=== PATIENT | female | born 1990 | race Caucasian/White ===

== ENCOUNTER → 2023-04-14 | Outpatient (CLI) | payer MEDICAID, SELFPAY ==
[2023-04-17 08:07] LABS: Chlamydia By Nucleic Acid AMP Negative (Negative); Gonococcus By Nucleic Acid AMP Negative (Negative)
== END | disposition home or self-care (01) ==
LOC: LABSPEC 10:29
PROVIDERS: PCP Internal Medicine; Referring Provider Obstetrics & Gynecology; Visit Provider Obstetrics & Gynecology
DX: Z34.90 Encounter for supervision of normal pregnancy, unspecified, unspecified trimester (principal); Z3A.00 Weeks of gestation of pregnancy not specified
CPT/HCPCS: 87086; 87088; 87491; 87591

== ENCOUNTER → 2023-04-26 | Outpatient (CLI) | payer MEDICAID, SELFPAY ==
[2023-04-26 11:10] LABS: Absolute Lymphocyte Count 1.52 X10^3/uL (0.83-4.51); Absolute Neutrophil Count 4.9 X10^3/uL (2.0-7.7); Basophil# 0.01 X10^3/uL; Basophil% 0.1 % (0-1); Eosinophil# 0.07 X10^3/uL; Hematocrit 34.2 % (37-47); Hemoglobin 11.1 g/dL (12.0-15.0); Lymphocyte # 1.52 X10^3/ul (0.83-4.51); Lymphocyte % 22.2 % (19-41); Mean Corp Hgb Conc 32.5 g/dL (32-36); Mean Corpuscular Hgb 29.1 pg (27.0-32.0); Mean Corpuscular Volume 89.8 fL (81-99); Mean Platelet Vol. 10.3 fl (6.2-12.0); Monocyte% 4.4 % (0-10); NRBC Flagged by Analyzer 0 % (0-5); Neutrophil # 4.92 X10^3/uL (2.7-7.7); Neutrophil % 71.9 % (47-70); Platelet Count 309 K/mm3 (150-450); RBC Distribution Width CV 13.4 % (11.6-14.6); RBC Distribution Width SD 44.4 fl (35.1-43.9); Red Blood Count 3.81 M/mm3 (4.2-5.4); White Blood Count 6.9 K/mm3 (4.4-11.0)
[2023-04-26 12:03] LABS: NATERA MAILED SPECIMEN
[2023-04-26 12:25] LABS: HIV - WCH Non-Reactive (Nonreactive); Hepatitis B Surface Antigen Non-Reactive (Nonreactive); Hepatitis C Antibody Non-Reactive (Nonreactive); Rubella IgG Reactive (Nonreactive); Syphilis Antibodies Non-reactive
== END | disposition home or self-care (01) ==
PROVIDERS: PCP Internal Medicine; Referring Provider Obstetrics & Gynecology; Visit Provider Obstetrics & Gynecology
DX: Z34.91 Encounter for supervision of normal pregnancy, unspecified, first trimester (principal); Z84.89 Family history of other specified conditions; Z82.79 Family history of other congenital malformations, deformations and chromosomal abnormalities
CPT/HCPCS: 36415; 85025; 86703; 86762; 86780; 86803; 86850; 86900; 86901; 87340

== ENCOUNTER → 2023-04-29 | Outpatient (CLI) | payer MEDICAID, SELFPAY ==
[2023-04-29 11:16] LABS: Amphetamine Urine VISTA NEGATIVE (<1000 ng/mL); Barbiturate Urine VISTA NEGATIVE (< 200 ng/mL); Benzodiazepine Urine VISTA NEGATIVE (< 200 ng/mL); Cocaine Urine VISTA NEGATIVE (< 300 ng/mL); Ecstacy Urine VISTA NEGATIVE (< 500 ng/mL); Methadone Urine VISTA NEGATIVE (< 300 ng/mL); PCP Urine VISTA NEGATIVE (< 25 ng/mL); THC Urine VISTA NEGATIVE (< 50 ng/mL); Vista UDS pH Range 7
== END | disposition home or self-care (01) ==
LOC: LABSPEC 10:39
PROVIDERS: PCP Internal Medicine; Referring Provider Student in an Organized Health Care Education/Training Program; Visit Provider Student in an Organized Health Care Education/Training Program
DX: F90.9 Attention-deficit hyperactivity disorder, unspecified type (principal)
CPT/HCPCS: 80307

== ENCOUNTER → 2023-06-02 | Outpatient (CLI) | payer MEDICAID, SELFPAY | END | disposition home or self-care (01) | PROVIDERS: PCP Internal Medicine; Referring Provider Registered Nurse; Visit Provider Registered Nurse | DX: Z36.9 Encounter for antenatal screening, unspecified (principal) | CPT/HCPCS: 36415 ==

== ENCOUNTER → 2023-07-20 | Outpatient (CLI) | payer MEDICAID, SELFPAY | END | disposition home or self-care (01) | LOC: LABSPEC 15:57 | PROVIDERS: PCP Internal Medicine; Referring Provider Obstetrics & Gynecology; Visit Provider Obstetrics & Gynecology | DX: N89.8 Other specified noninflammatory disorders of vagina (principal) | CPT/HCPCS: 87070; 87205 ==

== ENCOUNTER → 2023-08-17 | Outpatient (CLI) | payer MEDICAID, SELFPAY ==
[2023-08-17 13:24] LABS: Absolute Lymphocyte Count 1.79 X10^3/uL (0.83-4.51); Absolute Neutrophil Count 8.9 X10^3/uL (2.0-7.7); Basophil# 0.03 X10^3/uL; Basophil% 0.3 % (0-1); Eosinophil# 0.09 X10^3/uL; Eosinophils% 0.8 % (0-5); Hematocrit 30.3 % (37-47); Hemoglobin 9.2 g/dL (12.0-15.0); Lymphocyte # 1.79 X10^3/ul (0.83-4.51); Lymphocyte % 15.6 % (19-41); Mean Corp Hgb Conc 30.4 g/dL (32-36); Mean Corpuscular Hgb 27.6 pg (27.0-32.0); Mean Platelet Vol. 10.6 fl (6.2-12.0); Monocyte# 0.57 X10^3/uL; NRBC Flagged by Analyzer 0 % (0-5); Neutrophil # 8.91 X10^3/uL (2.7-7.7); Neutrophil % 77.8 % (47-70); Platelet Count 246 K/mm3 (150-450); RBC Distribution Width CV 13.5 % (11.6-14.6); Red Blood Count 3.33 M/mm3 (4.2-5.4); White Blood Count 11.5 K/mm3 (4.4-11.0)
[2023-08-17 13:31] LABS: Glucose Challenge Gest 1H 50g 86 mg/dL (70-140)
[2023-08-17 14:06] LABS: HIV - WCH Non-Reactive (Nonreactive); Syphilis Antibodies Non-reactive
== END | disposition home or self-care (01) ==
LOC: PAVLAB 12:53
PROVIDERS: PCP Internal Medicine; Referring Provider Obstetrics & Gynecology; Visit Provider Obstetrics & Gynecology
DX: O09.90 Supervision of high risk pregnancy, unspecified, unspecified trimester (principal); Z13.1 Encounter for screening for diabetes mellitus; Z3A.00 Weeks of gestation of pregnancy not specified
CPT/HCPCS: 36415; 82950; 85025; 86703; 86780

== ENCOUNTER 2023-09-10 11:55 | Outpatient (CLI) | payer MEDICAID, SELFPAY ==
[2023-09-10 12:07] VITALS: BMI 21.9
--- NOTE | 2023-09-10 12:11 | OB.TRI.HP_ITS ---
HPI - General HPI Narrative WILLIAM SMITH, is a 33 y/o @ 29 weeks 4 days who presents to OB triage for contractions. She states that she is nervous because she was told 3 days ago that her lower uterine segment shrunk even more (by half). It was 24 mm at anatomy scan. Records from [facility] are still pending. She admits to having sex this am also. She ate a full breakfast this morning. Wants a note to be done with work. Maternal Data Information ERICA Calculator Estimated Delivery Date Method Current WG Current Estimate 11/22/23 LMP (Certain) 29w 4d Other Estimates 11/24/23 Ultrasound #1 29w 2d PFSH PFS Medical History Bacterial vaginosis Vaginal yeast infection Home Medications PNV 178-FA 180 mcg-om3 35 mg-dha 25 mg-epa 5 mg-fish oil chew tablet 1 tab PO DAILY 04/05/23 [History Last Taken Unknown] dextroamphetamine-amphetamine ER 20 mg 24hr capsule,extend release (Adderall XR) 20 mg PO DAILY 30 days #30 caps 07/28/23 [Rx Last Taken 09/09/23] Allergy/AdvReac Type Severity Reaction Status Date / Time No Known Allergies Allergy Verified 08/29/23 08:41 Family History Father Varicose veins of both lower extremities Mother Lumpy breasts Genetic testing done-no genetic variants noted Grandmother Breast cancer Maternal- preventative dbl mastectomy Surgical History H/O dilation and curettage History of appendectomy History of arthroscopic knee surgery History of elective Social History adopted: No household members: significant other, children and friend(s) number of children: 2 current occupational status: employed current occupation: [employer] pets and animals: Yes pets and animals: dog(s) history of recent travel: No sexually active: Yes Smoking Status: Former smoker quit date: 06/16/13 alcohol intake: current alcohol intake frequency: a few times a week Alcohol type: hard liquor details: not while substance use type: does not use well-balanced diet: rarely or never caffeine: Yes Type: carbonated beverages Number of servings: 1 eating out: 1-3 times/week during the past year weight has: remained stable what type of physical activity do you participate in: none walter/mandaen: None seatbelt use: always do you feel safe at home: Yes additional social history: Significant Other Andrea-Disabled History 4 Elective abortions 1 Hx Para 2 Spontaneous abortions Hx # Term Pregnancies Ectopic pregnancies Hx # Pregnancies Multiple births # of living children 2 Past Pregnancies Del. Date Name GA/Weeks Outcome Route Bth Weight Infant Gen Labor Lgth Anesthesia Del Locatn Provider FOB 05/15/12 Bhupendra live - full term 7# Male [facility] 03/19/13 terminated due to abnorm 03/31/15 Nova 39 live - full term 8# Female [facility] [place] Delivery Date: 05/15/12 Last Updated by: Cintia Christensen emergency c section, decels Delivery Date: 03/31/15 Last Updated by: Cintia Christensen uterus thin, saw baby through uterus. Pre-term labor Visit Details Expected Delivery Route/Plan RLTCS and BS Plans Covid status: [] Flu vaccine: [] Tdap vaccine: [] Rhogam: [] LARC form signed: [] Problem list reviewed and updated with the most current plan of care details and appropriate orders placed. Relevant counseling for the gestational age provided. Continue routine care and follow up unless otherwise noted in visit notes/problem list details OB Flowsheet Initial Weight: 93 lb Date -?-?-?-?-?-?-?-?-?-?-?-?- EGA Weight BP Urine Prot -?-?-?-?-?-?-?-?-?-?-?-?- Glucose FHR FuHt Pres Dilation -?-?-?-?-?-?-?-?-?-?-?-?- Effaced St Visit Note 04/14/23 -?-?-?-?-?-?-?-?-?-?-?-?- 8w 2d 93 lb (+0 oz) 90/70 -?-?-?-?-?-?-?-?-?-?-?-?- 160 -?-?-?-?-?-?-?-?-?-?-?-?- SM- CRL cons wit h LMP 05/13/23 -?-?-?-?-?-?-?-?-?-?-?-?- 12w 3d 94 lb (+16 oz) 113/77 Negative -?-?-?-?-?-?-?-?-?-?-?-?- Negative 145 -?-?-?-?-?-?-?-?-?-?-?-?- LC- no vb/crampi ng. accepts afp. mfm us ordered. normal nob labs.nipt low risk. 06/09/23 -?-?-?-?-?-?-?-?-?-?-?-?- 16w 2d 97 lb 4 oz (+4 lb 4 oz) 105/70 -?-?-?-?-?-?-?-?-?-?-?-?- 153 -?-?-?-?-?-?-?-?-?-?-?-?- KW-no vb/ctx. po ssible flutters. Formal US 06/23. No concerns 07/06/23 -?-?-?-?-?-?-?-?-?-?-?-?- 20w 1d 102 lb 2 oz (+9 lb 2 oz) 108/73 Negative -?-?-?-?-?-?-?-?-?-?-?-?- Negative 151 -?-?-?-?-?-?-?-?-?-?-?-?- JV- see problem list for details about delivery. no lof, vaginal bleeding, or dec fm. 07/20/23 -?-?-?-?-?-?-?-?-?-?-?-?- 22w 1d 107 lb 8 oz (+14 lb 8 oz) 118/79 Negative -?-?-?-?-?-?-?-?-?-?-?-?- Negative 146 -?-?-?-?-?-?-?-?-?-?-?-?- JV- no lof, vagi nal bleeding, or cramping. Has a large amount of vaginal discharge and burning . on exam she has a moderate yeast infection. treatment ordered. pt wondering if we can do her rpt section on a tuesday. She has a special connection with the . I told her likely no. 08/17/23 -?-?-?-?-?-?-?-?-?-?-?-?- 26w 1d 111 lb 2 oz (+18 lb 2 oz) 123/79 -?-?-?-?-?-?-?-?-?-?-?-?- 145 27 -?-?-?-?-?-?-?-?-?-?-?-?- JV- normal gluco la. pt is anemic. starting ferrous gluconate bid. 08/29/23 -?-?-?-?-?-?-?-?-?-?-?-?- 27w 6d 113 lb 4 oz (+20 lb 4 oz) 107/74 Negative -?-?-?-?-?-?-?-?-?-?-?-?- Negative 144 28 -?-?-?-?-?-?-?-?-?-?-?-?- JV- unable to to lerate PO iron. will order Iron infusion. tdap next visit. ROS Constitutional Constitutional: Reports systems reviewed and no addt'l complaints, except as documented Gastrointestinal Gastrointestinal: Denies bloating, constipation, cramping, diarrhea, nausea or vomiting Genitourinary Genitourinary: Reports other Details: Denies vaginal odor, vaginal bleeding, or vaginal discharge ; Denies difficulty urinating or flank pain Physical Exam HEENT normocephalic Resp normal respiratory effort and normal air movement no CVA tenderness Extremity normal to inspection General Extremity: edema bilateral (trace ) NST FHR Rate Baby A Baseline: 135 Variability:: Moderate Accelerations:: 10 x 10 Decelerations:: None NST Reactive:: Yes FHR Category:: Category I Assessment & Plan (1) Threatened labor: (2) Uterine abnormality in : COMMENT: 24mm thin GENNARO seen on US this . previous uterine window noted, plan 30 and 36 week US. s/p mfm consult- delivery at 37 weeks recommended. steroids at 35 weeks, RLTCS scheduled for 10/31 @ 7:15 with JV -rpt ultrasound showed GENNARO at 29 weeks to be 16mm. has plan to repeat this at 36 weeks but may be delivered before this. -on l&D for pain after sex on 09/09 and stable. PLAN: tylenol + procardia, hydrate, rest pelvic rest for remainder of (3) Former smoker: COMMENT: Quit 2014 (4) Family history of Bonilla syndrome: COMMENT: previous child. low nipt this . (5) Anemia: COMMENT: CBC & Fe studies in 4 weeks (6) Previous section: COMMENT: x 2. First related to decels 10/31- 7am- JV with BTL. title 19 08/17/23 (7) Anxiety and depression: (8) ADHD (attention deficit hyperactivity disorder): COMMENT: on adderall. (9) Supervision of high-risk : COMMENT: , ERICA 11/22/23, Katina Winters Significant other Andrea (10) : QUALIFIERS: Weeks of gestation: 27 weeks Qualified Code(s): Z3A.27 - 27 weeks gestation of COMMENT: NIPT low risk, carrier testing neg. 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
[2023-09-10 12:17] VITALS: PULSE 111; RESP 16; TEMP 37.1
[2023-09-10 12:18] VITALS: BP 120/74; PULSE 111
[2023-09-10] MEDS: NIFEdipine 10 MG Capsule PO (12:52)
[2023-09-10] MEDS: Acetaminophen 500 MG Tablet 1000 MG PO (12:52)
== END 2023-09-10 13:50 | disposition home or self-care (01) ==
LOC: WPOUT 11:56 → WP 11:57
PROVIDERS: PCP Internal Medicine; Referring Provider Registered Nurse; Visit Provider Registered Nurse
DX: O47.03 False labor before 37 completed weeks of gestation, third trimester (principal); O34.593 Maternal care for other abnormalities of gravid uterus, third trimester; O34.211 Maternal care for low transverse scar from previous cesarean delivery; O99.013 Anemia complicating pregnancy, third trimester; O99.343 Other mental disorders complicating pregnancy, third trimester; F90.9 Attention-deficit hyperactivity disorder, unspecified type; O09.93 Supervision of high risk pregnancy, unspecified, third trimester; Z3A.29 29 weeks gestation of pregnancy; Z87.59 Personal history of other complications of pregnancy, childbirth and the puerperium; Z87.891 Personal history of nicotine dependence; Z82.79 Family history of other congenital malformations, deformations and chromosomal abnormalities
CPT/HCPCS: 59025; 59050; 76815; 99221; G0378

== ENCOUNTER 2023-09-13 09:15 | Outpatient (CLI) | payer MEDICAID, SELFPAY ==
[2023-09-13 09:39] VITALS: BP 116/74; PULSE 105; RESP 16; TEMP 36.3; O2SAT 100; BMI 21.9
[2023-09-13] MEDS: Iron Sucrose Complex 300 MG in 0.9% Normal Saline (250mL Bag) 250 ML 177 MG IV (10:13)
[2023-09-13] MEDS: 0.9% NaCl Peripheral Flush Adult/Peds IV (10:13)
[2023-09-13] MEDS: 0.9% NaCl IVPB Med Flush (250 mL) 15 ML IV (10:13)
[2023-09-13 12:30] VITALS: BP 102/72; PULSE 77
== END 2023-09-13 09:16 | disposition home or self-care (01) ==
LOC: MEDOUTP 09:16
PROVIDERS: PCP Internal Medicine; Referring Provider Obstetrics & Gynecology; Visit Provider Obstetrics & Gynecology
DX: D64.9 Anemia, unspecified (principal)
CPT/HCPCS: 96365; 96366; J1756; J7050; A4216

== ENCOUNTER 2023-09-21 09:36 | Outpatient (CLI) | payer MEDICAID, SELFPAY ==
[2023-09-21 09:40] VITALS: BP 104/67; PULSE 111; RESP 16; TEMP 36.4; O2SAT 99
[2023-09-21] MEDS: 0.9% NaCl IVPB Med Flush (250 mL) 15 ML IV (10:12)
[2023-09-21] MEDS: 0.9% NaCl Peripheral Flush Adult/Peds IV (10:12)
[2023-09-21] MEDS: Iron Sucrose Complex 300 MG in 0.9% Normal Saline (250mL Bag) 250 ML 177 MG IV (10:15)
[2023-09-21 12:10] VITALS: BP 99/64; PULSE 98; RESP 16; TEMP 36.8; O2SAT 99
== END 2023-09-21 09:37 | disposition home or self-care (01) ==
LOC: MEDOUTP 09:36
PROVIDERS: PCP Internal Medicine; Referring Provider Obstetrics & Gynecology; Visit Provider Obstetrics & Gynecology
DX: D64.9 Anemia, unspecified (principal)
CPT/HCPCS: 96365; 96366; J1756; J7050; A4216

== ENCOUNTER 2023-09-28 08:22 | Outpatient (CLI) | payer MEDICAID, SELFPAY ==
[2023-09-28 08:28] VITALS: BP 113/70; PULSE 96; RESP 16; TEMP 36.3; O2SAT 99
[2023-09-28] MEDS: 0.9% NaCl Peripheral Flush Adult/Peds IV (08:32)
[2023-09-28] MEDS: 0.9% NaCl IVPB Med Flush (250 mL) 15 ML IV (08:32)
[2023-09-28] MEDS: Iron Sucrose Complex 300 MG in 0.9% Normal Saline (250mL Bag) 250 ML 177 MG IV (09:09)
[2023-09-28 11:30] LABS: Absolute Lymphocyte Count 1.42 X10^3/uL (0.83-4.51); Basophil# 0.02 X10^3/uL; Basophil% 0.2 % (0-1); Eosinophil# 0.07 X10^3/uL; Eosinophils% 0.7 % (0-5); Hematocrit 31.4 % (37-47); Hemoglobin 9.6 g/dL (12.0-15.0); Lymphocyte # 1.42 X10^3/ul (0.83-4.51); Lymphocyte % 14.2 % (19-41); Mean Corp Hgb Conc 30.6 g/dL (32-36); Mean Corpuscular Volume 88.5 fL (81-99); Mean Platelet Vol. 10.1 fl (6.2-12.0); NRBC Flagged by Analyzer 0 % (0-5); Neutrophil # 8.02 X10^3/uL (2.7-7.7); Neutrophil % 80.1 % (47-70); Platelet Count 316 K/mm3 (150-450); RBC Distribution Width CV 18.8 % (11.6-14.6); RBC Distribution Width SD 58.4 fl (35.1-43.9); Red Blood Count 3.55 M/mm3 (4.2-5.4)
[2023-09-28 11:53] LABS: Ferritin 210 ng/mL (8-252); Iron 725 ug/dL (50-170); Iron Binding Capacity,Total 594 ug/dL (250-450); PERCENT IRON SATURATION 122.1 % (15.0-55.0)
[2023-09-28 11:55] LABS: Vitamin B12 247 pg/mL (211-911)
== END 2023-09-28 23:59 | disposition home or self-care (01) ==
PROVIDERS: Nurse Practitioner Women's Health; PCP Internal Medicine; Referring Provider Obstetrics & Gynecology; Visit Provider Obstetrics & Gynecology
DX: O99.012 Anemia complicating pregnancy, second trimester (principal); O09.92 Supervision of high risk pregnancy, unspecified, second trimester; Z3A.26 26 weeks gestation of pregnancy
CPT/HCPCS: 96365; 96366; 36415; 82607; 82728; 83540; 83550; 85025; A4216; J1756; J7050

== ENCOUNTER 2023-09-28 12:25 | Outpatient (CLI) | payer MEDICAID, SELFPAY ==
[2023-09-28 12:46] VITALS: BP 98/64; PULSE 86; RESP 16; TEMP 36.6
[2023-09-28 13:36] VITALS: BMI 22.7
--- NOTE | 2023-09-28 13:52 | OB.TRI.HP_ITS ---
HPI - General HPI Narrative WILLIAM SMITH, is a 33 F who presents to L&D with decreased movement Maternal Data Information ERICA Calculator Estimated Delivery Date Method Current WG Current Estimate 11/22/23 LMP (Certain) 32w 1d Other Estimates 11/24/23 Ultrasound #1 31w 6d PFSH PFSH Medical History Bacterial vaginosis Vaginal yeast infection Home Medications ?Medication ?Instructions ?Recorded ?Last Taken ?Type PNV 178-FA 180 mcg-om3 35 mg-dha 1 tab PO DAILY 04/05/23 09/27/23 08:00 History 25 mg-epa 5 mg-fish oil chew tablet 1 TAB dextroamphetamine-amphetamine ER 20 mg PO DAILY 30 days #30 caps 07/28/23 09/27/23 08:00 Rx 20 mg 24hr capsule,extend release 20 mg (Adderall XR) Allergy/AdvReac Type Severity Reaction Status Date / Time cefixime Allergy Mild Hives Verified 09/28/23 12:47 guaifenesin Allergy Mild Hives Verified 09/28/23 12:47 chlorpheniramine Allergy Unknown unknown Verified 09/28/23 12:47 doxylamine Allergy Unknown unknown Verified 09/28/23 12:47 Family History Father Varicose veins of both lower extremities Mother Lumpy breasts Genetic testing done-no genetic variants noted Grandmother Breast cancer Maternal- preventative dbl mastectomy Surgical History History of arthroscopic knee surgery History of appendectomy History of elective H/O dilation and curettage Social History adopted: No household members: significant other, children and friend(s) number of children: 2 current occupational status: employed current occupation: [employer] pets and animals: Yes pets and animals: dog(s) history of recent travel: No sexually active: Yes Smoking Status: Former smoker quit date: 06/16/13 alcohol intake: current alcohol intake frequency: a few times a week Alcohol type: hard liquor details: not while substance use type: does not use well-balanced diet: rarely or never caffeine: Yes Type: carbonated beverages Number of servings: 1 eating out: 1-3 times/week during the past year weight has: remained stable what type of physical activity do you participate in: none walter/pentecostal: None seatbelt use: always do you feel safe at home: Yes additional social history: Significant Other Andrea-Disabled History 4 Elective abortions 1 Hx Para 2 Spontaneous abortions Hx # Term Pregnancies Ectopic pregnancies Hx # Pregnancies Multiple births # of living children 2 Past Pregnancies Del. Date Name GA/Weeks Outcome Route Bth Weight Gen Labor Lgth Anesthesia Del Locatn Provider FOB 05/15/12 Bhupendra live - full term 7# Male spinal [facility] [place] 03/19/13 terminated due to abnorm 03/31/15 Nova 39 live - full term 8# Female [facility] [place] Delivery Date: 05/15/12 Last Updated by: Cintia Christensen emergency c section, decels Delivery Date: 03/31/15 Last Updated by: Cintia Christensen uterus thin, saw baby through uterus. Pre-term labor Visit Details Expected Delivery Route/Plan RLTCS and BS Plans Covid status: [] Flu vaccine: [] Tdap vaccine: [] Rhogam: [] LARC form signed: [] Problem list reviewed and updated with the most current plan of care details and appropriate orders placed. Relevant counseling for the gestational age provided. Continue routine care and follow up unless otherwise noted in visit notes/problem list details OB Flowsheet Initial Weight: 93 lb Date -?-?-?-?-?-?-?-?-?-?-?-?- EGA Weight BP Urine Prot -?-?-?-?-?-?-?-?--?-?-?-?- Glucose FHR FuHt Pres Dilation -?-?-?-?-?-?-?-?-?-?-?-?- Effaced St Visit Note 04/14/23 -?-?-?-?-?-?-?-?-?-?-?-?- 8w 2d 93 lb (+0 oz) 90/70 -?-?-?-?-?-?-?-?-?-?-?-?- 160 -?-?-?-?-?-?-?-?-?-?-?-?- SM- CRL cons wit h LMP 05/13/23 -?-?-?-?-?-?-?-?-?-?-?-?- 12w 3d 94 lb (+16 oz) 113/77 Negative -?-?-?-?-?-?-?-?-?-?-?-?- Negative 145 -?-?-?-?-?-?-?-?-?-?-?-?- LC- no vb/crampi ng. accepts afp. mfm us ordered. normal nob labs.nipt low risk. 06/09/23 -?-?-?-?-?-?-?-?-?-?-?-?- 16w 2d 97 lb 4 oz (+4 lb 4 oz) 105/70 -?-?-?-?-?-?-?-?-?-?-?-?- 153 -?-?-?-?-?-?-?-?-?-?-?-?- KW-no vb/ctx. po ssible flutters. Formal US 06/23. No concerns 07/06/23 -?-?-?-?-?-?-?-?-?-?-?--?- 20w 1d 102 lb 2 oz (+9 lb 2 oz) 108/73 Negative -?-?-?-?-?-?-?-?-?-?-?-?- Negative 151 -?-?-?-?-?-?-?-?-?-?-?-?- JV- see problem list for details about delivery. no lof, vaginal bleeding, or dec fm. 07/20/23 -?-?-?-?-?-?-?-?-?-?-?-?- 22w 1d 107 lb 8 oz (+14 lb 8 oz) 118/79 Negative -?-?-?-?-?-?-?-?-?-?-?-?- Negative 146 -?-?-?-?-?-?-?-?-?-?-?-?- JV- no lof, vagi nal bleeding, or cramping. Has a large amount of vaginal discharge and burning . on exam she has a moderate yeast infection. treatment ordered. pt wondering if we can do her rpt section on a tuesday. She has a special connection with the . I told her likely no. 08/17/23 -?-?-?-?-?-?-?-?-?-?-?-?- 26w 1d 111 lb 2 oz (+18 lb 2 oz) 123/79 -?-?-?-?-?-?-?-?-?-?-?-?- 145 27 -?-?-?-?-?-?-?-?-?-?-?-?- JV- normal gluco la. pt is anemic. starting ferrous gluconate bid. 08/29/23 -?-?-?-?-?-?-?-?-?-?-?-?- 27w 6d 113 lb 4 oz (+20 lb 4 oz) 107/74 Negative -?-?-?-?-?-?-?-?-?-?-?-?- Negative 144 28 -?-?-?-?-?-?-?-?-?-?-?-?- JV- unable to to lerate PO iron. will order Iron infusion. tdap next visit. 09/12/23 -?-?-?-?-?-?-?-?-?-?-?-?- 29w 6d 113 lb 8 oz (+20 lb 8 oz) 125/80 Negative -?-?-?-?-?-?-?-?-?-?-?-?- Negative 140 29 -?-?-?-?-?-?-?-?-?-?-?-?- JV- was in [employer]ag e over the weekend for pain. Her GENNARO is half the size it was at 20 weeks and it caused anxiety. no work or intercourse for rest of deliver 37 weeks or sooner as needed. plan for 35 week steroids. 09/28/23 -?-?-?-?-?-?-?-?-?-?-?-?- 32w 1d 116 lb 6 oz (+23 lb 6 oz) 110/73 Negative -?-?-?-?-?-?-?-?-?-?-?-?- 145 33 -?-?-?-?-?-?-?-?-?-?-?-?- JV- feeling cram ping today but had sex recently. ua is negative. She is requesting an NST but unfortunatley due to staff gone for lunch she will need to go to L&D ROS Constitutional Constitutional: Reports systems reviewed and no addt'l complaints, except as documented Gastrointestinal Gastrointestinal: Denies bloating, constipation, cramping, diarrhea, nausea or vomiting Genitourinary Genitourinary: Reports other Details: Denies vaginal odor, vaginal bleeding, or vaginal discharge ; Denies difficulty urinating or flank pain NST FHR Rate Baby A Baseline: 140 Variability:: Moderate Accelerations:: 15 x 15 Decelerations:: None NST Reactive:: Yes FHR Category:: Category I Assessment & Plan (1) Decreased movement: PLAN: nst is reactive and patient reassured. having some contractions but recently had intercourse. She knows to be on pelvic rest. cx was closed in the office prior to her nst. ptl precautions discussed. (2) Threatened labor: (3) Anemia: COMMENT: CBC & Fe studies in 4 weeks (4) Family history of Bonilla syndrome: COMMENT: previous child. low nipt this . (5) Former smoker: COMMENT: Quit 2014 (6) Uterine abnormality in : COMMENT: 24mm thin GENNARO seen on US this . previous uterine window noted, plan 30 and 36 week US. s/p mfm consult- delivery at 37 weeks recommended. steroids at 35 weeks, RLTCS scheduled for 10/31 @ 7:15 with JV -rpt ultrasound showed GENNARO at 29 weeks to be 16mm. has plan to repeat this at 36 weeks but may be delivered before this. -on l&D for pain after sex on 09/09 and stable. (7) Previous section: COMMENT: x 2. First related to decels 10/31- 7am- JV with BTL. title 19 08/17/23 (8) Anxiety and depression: (9) ADHD (attention deficit hyperactivity disorder): COMMENT: on adderall. (10) Supervision of high-risk : COMMENT: , ERICA 11/22/23, Katina Winters Significant other Andrea (11) : QUALIFIERS: Weeks of gestation: 32 weeks Qualified Code(s): Z3A.32 - 32 weeks gestation of COMMENT: NIPT low risk, carrier testing neg. 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
== END 2023-09-28 14:00 | disposition home or self-care (01) ==
LOC: WPOUT 12:32 → WP 12:32
PROVIDERS: PCP Internal Medicine; Referring Provider Obstetrics & Gynecology; Visit Provider Obstetrics & Gynecology
DX: O36.8130 Decreased fetal movements, third trimester, not applicable or unspecified (principal); O47.03 False labor before 37 completed weeks of gestation, third trimester; O99.013 Anemia complicating pregnancy, third trimester; O09.93 Supervision of high risk pregnancy, unspecified, third trimester; O34.593 Maternal care for other abnormalities of gravid uterus, third trimester; O34.211 Maternal care for low transverse scar from previous cesarean delivery; O99.343 Other mental disorders complicating pregnancy, third trimester; F32.A Depression, unspecified; F41.9 Anxiety disorder, unspecified; F90.9 Attention-deficit hyperactivity disorder, unspecified type; Z3A.32 32 weeks gestation of pregnancy; Z87.59 Personal history of other complications of pregnancy, childbirth and the puerperium; Z87.891 Personal history of nicotine dependence; Z82.79 Family history of other congenital malformations, deformations and chromosomal abnormalities
CPT/HCPCS: 96365; 96366; 36415; 59025; 59050; 82607; 82728; 83540; 83550; 85025; 99221; J1756; J7050; A4216; G0378

== ENCOUNTER 2023-10-20 06:08 | Inpatient (IN) | payer MEDICAID, SELFPAY ==
[2023-10-20] VITALS (62 sets, daily range): BP systolic 96–126; BP diastolic 60–85; PULSE 96–137; RESP 14–16; TEMP 36.4–37.3; O2SAT 16–100; BMI 23.6
--- NOTE | 2023-10-20 | FALS_PTH ---
PATIENT: WILLIAM SMITH LOC: [facility] U#:[id number] AGE/SX: 33/F ROOM: WP011 RE10/20/[address]: Dr. Guerline Dickens DO : 1990 BED: 1 DIS: 10/21/2023 SPEC #: [id number] RECD: 10/20/23 07:57 STATUS: MARQUITA EDUARD #: [id number] JAY: 10/20/23 00:[address]: Guerline Dickens DEPT: SURGICAL PATHOLOGY RECD BY: Penny Rebolledo ENTERED: 10/20/23 09:09 SP TYPE: FALL TUBES OTHR DR: Dr. Lilia Fletcher DO Tissues: Fallopian tube Procedures: Surgery Specimen Level II HEADER OPERATION: Tubal ligation PRE-OP DIAGNOSIS: Sterilization TISSUE SUBMITTED: Fallopian tubes- suture right tube MICROSCOPIC DIAGNOSIS Bilateral fallopian tubes, salpingectomy: Bilateral fallopian tubes, no pathologic diagnosis. SJ: 10/21/2023 MICROSCOPIC DESCRIPTION Slides are reviewed. GROSS DESCRIPTION Received in fixative is one container labeled with the patient's name and designated bilateral fallopian tubes - suture on right fallopian tube. The specimen consists of bilateral fallopian tubes including fimbrial ends. Right fallopian tube measures 6.5 cm in length and 1.0 cm in diameter. Left fallopian tube measures 5.5cm in length and 0.6cm in diameter. Sections reveal unremarkable cut surfaces. Fire Prevention Engineer sections are submitted in two cassettes with each cassette containing one fallopian tube. / SJ: 10/20/23 TC:4 CPT: 76992 x2
[2023-10-20] MEDS: Lactated Ringers 1,000 ML 999 ML IV (02:40)
[2023-10-20 02:53] LABS: Absolute Neutrophil Count 10.8 X10^3/uL (2.0-7.7); Basophil# 0.06 X10^3/uL; Basophil% 0.4 % (0-1); Eosinophil# 0.04 X10^3/uL; Eosinophils% 0.3 % (0-5); Hematocrit 34.1 % (37-47); Lymphocyte % 13.4 % (19-41); Mean Corp Hgb Conc 32.3 g/dL (32-36); Mean Corpuscular Hgb 28.7 pg (27.0-32.0); Mean Platelet Vol. 10.6 fl (6.2-12.0); Monocyte# 0.68 X10^3/uL; NRBC Flagged by Analyzer 0 % (0-5); Neutrophil # 10.77 X10^3/uL (2.7-7.7); Platelet Count 273 K/mm3 (150-450); RBC Distribution Width SD 63.9 fl (35.1-43.9); Red Blood Count 3.83 M/mm3 (4.2-5.4); White Blood Count 13.5 K/mm3 (4.4-11.0)
[2023-10-20] MEDS: Betamethasone/Betamethasone 30 MG/5 ML Vial 12 MG IM (03:21)
[2023-10-20] MEDS: Sodium Citrate/Citric Acid 30 ML UDC PO (03:52)
[2023-10-20] MEDS: Lactated Ringers 1,000 ML 100 ML IV (03:53)
[2023-10-20 04:00] LABS: Amphetamine Urine POSITIVE (<1000 ng/mL); Barbiturate Urine NEGATIVE (< 200 ng/mL); Benzodiazepine Urine NEGATIVE (< 200 ng/mL); Cocaine Urine NEGATIVE (< 300 ng/mL); Ecstacy Urine NEGATIVE (< 500 ng/mL); Methadone Urine NEGATIVE (< 300 ng/mL); Opiates Urine NEGATIVE (< 300 ng/mL); PCP Urine NEGATIVE (< 25 ng/mL); THC Urine NEGATIVE (< 50 ng/mL); Vista UDS pH Range 5
[2023-10-20] MEDS: Cefazolin 2 GM in 0.9% Normal Saline (100mL Bag) 100 ML IV (06:25)
[2023-10-20] MEDS: Oxytocin 15 Units/NS 250ml 15 UNITS/250 ML IV.SOLN 83 UNITS IV (07:50)
--- NOTE | 2023-10-20 08:00 | PCM.HP.OB ---
HPI - General General Date of Admission: 10/20/23 HPI Narrative WILLIAM SMITH, is a 33 F who presents to L&D with a history of prior section and a known thin lower uterine segment and with painful uterine contractions that started at midnight. Around 5:40 am, late decelerations were present that became persistent. The decision was made to proceed with a repeat section eleanor. Maternal Data Information ERICA Calculator Estimated Delivery Date Method Current WG Current Estimate 11/22/23 LMP (Certain) 35w 2d Other Estimates 11/24/23 Ultrasound #1 35w 0d PFSH PFSH Medical History (Updated 10/20/23 @ 02:37 by Emani Whitfield) Uterine anomaly depression Depression Anxiety Bacterial vaginosis Vaginal yeast infection Home Medications ?Medication ?Instructions ?Recorded ?Last Taken ?Type PNV 178-FA 180 mcg-om3 35 mg-dha 1 tab PO DAILY 04/05/23 10/20/23 History 25 mg-epa 5 mg-fish oil chew tablet dextroamphetamine-amphetamine ER 20 mg PO DAILY 30 days #30 caps 09/29/23 10/19/23 Rx 20 mg 24hr capsule,extend release (Adderall XR) Allergy/AdvReac Type Severity Reaction Status Date / Time cefixime Allergy Mild Hives Verified 10/20/23 02:05 guaifenesin Allergy Mild Hives Verified 10/20/23 02:05 chlorpheniramine Allergy Unknown unknown Verified 10/20/23 02:05 doxylamine Allergy Unknown unknown Verified 10/20/23 02:05 Family History Father Varicose veins of both lower extremities Mother Lumpy breasts Genetic testing done-no genetic variants noted Grandmother Breast cancer Maternal- preventative dbl mastectomy Surgical History History of arthroscopic knee surgery History of appendectomy History of elective H/O dilation and curettage Social History adopted: No household members: significant other, children and friend(s) number of children: 2 current occupational status: employed current occupation: [employer] pets and animals: Yes pets and animals: dog(s) history of recent travel: No sexually active: Yes Smoking Status: Former smoker quit date: 06/16/13 alcohol intake: current alcohol intake frequency: a few times a week Alcohol type: hard liquor details: not while substance use type: does not use well-balanced diet: rarely or never caffeine: Yes Type: carbonated beverages Number of servings: 1 eating out: 1-3 times/week during the past year weight has: remained stable what type of physical activity do you participate in: none walter/zoroastrian: None seatbelt use: always do you feel safe at home: Yes additional social history: Significant Other Andrea-Elina [place] History 4 Elective abortions 1 Hx Para 2 Spontaneous abortions Hx # Term Pregnancies Ectopic pregnancies Hx # Pregnancies Multiple births # of living children 2 Past Pregnancies Del. Date Name GA/Weeks Outcome Route Bth Weight Infant Gen Labor Lgth Anesthesia Del Locatn Provider FOB 05/15/12 Bhupendra live - full term 7# Male [facility] 03/19/13 terminated due to abnorm 03/31/15 Nov 39 live - full term 8# Female [facility] Delivery Date: 05/15/12 Last Updated by: Cintia Christensen emergency c section, decels Delivery Date: 03/31/15 Last Updated by: Cintia Christensen uterus thin, saw baby through uterus. Pre-term labor Visit Details Expected Delivery Route/Plan RLTCS and BS Plans Covid status: [] Flu vaccine: [] Tdap vaccine: [] Rhogam: [] LARC form signed: [] Problem list reviewed and updated with the most current plan of care details and appropriate orders placed. Relevant counseling for the gestational age provided. Continue routine care and follow up unless otherwise noted in visit notes/problem list details OB Flowsheet Initial Weight: 93 lb Date <del>?</del> EGA Weight BP Urine Prot <del>?</del> Glucose FHR FuHt Pres Dilation <del>?</del> Effaced St Visit Note 04/14/23 <del>?</del> 8w 2d 93 lb (+0 oz) 90/70 <del>?</del> 160 <del>?</del> SM- CRL cons with LMP 05/13/23 <del>?</del> 12w 3d 94 lb (+16 oz) 113/77 Negative <del>?</del> Negative 145 <del>?</del> LC- no vb/cramping. accepts afp. mfm us ordered. normal nob labs.nipt low risk. 06/09/23 <del>?</del> 16w 2d 97 lb 4 oz (+4 lb 4 oz) 105/70 <del>?</del> 153 <del>?</del> KW-no vb/ctx. possible flutters. Formal US 06/23. No concerns 07/06/23 <del>?</del> 20w 1d 102 lb 2 oz (+9 lb 2 oz) 108/73 Negative <del>?</del> Negative 151 <del>?</del> JV- see problem list for details about delivery. no lof, vaginal bleeding, or dec fm. 07/20/23 <del>?</del> 22w 1d 107 lb 8 oz (+14 lb 8 oz) 118/79 Negative <del>?</del> Negative 146 <del>?</del> JV- no lof, vaginal bleeding, or cramping. Has a large amount of vaginal discharge and burning . on exam she has a moderate yeast infection. treatment ordered. pt wondering if we can do her rpt section on a tuesday. She has a special connection with the . I told her likely no. 08/17/23 <del>?</del> 26w 1d 111 lb 2 oz (+18 lb 2 oz) 123/79 <del>?</del> 145 27 <del>?</del> JV- normal glucola. pt is anemic. starting ferrous gluconate bid. 08/29/23 <del>?</del> 27w 6d 113 lb 4 oz (+20 lb 4 oz) 107/74 Negative <del>?</del> Negative 144 28 <del>?</del> JV- unable to tolerate PO iron. will order Iron infusion. tdap next visit. 09/12/23 <del>?</del> 29w 6d 113 lb 8 oz (+20 lb 8 oz) 125/80 Negative <del>?</del> Negative 140 29 <del>?</del> JV- was in triage over the weekend for pain. Her GENNARO is half the size it was at 20 weeks and it caused anxiety. no work or intercourse for rest of deliver 37 weeks or sooner as needed. plan for 35 week steroids. 09/28/23 <del>?</del> 32w 1d 116 lb 6 oz (+23 lb 6 oz) 110/73 Negative <del>?</del> 145 33 <del>?</del> JV- feeling cramping today but had sex recently. ua is negative. She is requesting an NST but unfortunatley due to staff gone for lunch she will need to go to L&D 10/12/23 <del>?</del> 34w 1d 118 lb (+25 lb) 114/76 Negative <del>?</del> Negative 161 34 <del>?</del> MH-No VB, LOF. Good FM. States not taking FE-upsetting to stomach. Did not respond to IV venofer. Will review with JV when available. Will go to next week for steroid injection. ROS Constitutional Constitutional: Denies change in weight, fatigue, fever(s), headache(s), poor appetite or weakness Eyes Eyes: Denies blurry vision, change in vision, seeing flashes or spots in vision ENT HEENT: Denies dizziness, headache(s), loss taste/smell or sore throat Cardiovascular Cardiovascular: Denies chest pain, dizziness, dyspnea, irregular heart rhythm, leg edema, palpitations, rapid heart rate or vomiting Respiratory/Chest Respiratory/Chest: Denies chest tightness, cough, dyspnea or breast pain Gastrointestinal Gastrointestinal: Denies abdominal pain, anorexia, constipation, cramping, diarrhea, hemorrhoids, vomiting or weight changes Genitourinary Genitourinary: Denies dysuria, flank pain, genital lesions, genital pain, urinary frequency or urinary urgency Musculoskeletal Musculoskeletal: Denies back pain, difficulty walking, joint pain, limited range of motion, muscle cramps or numbness Integumentary Integumentary: Denies lesions or unusual bruising Neurologic Neurologic: Denies abnormal movements, abnormal speech, dizziness, numbness, seizure-like activity or syncope Psychiatric Psychiatric: Denies anxiety, behavioral changes, change in appetite, change in libido, cognitive impairment, confusion, depression, difficulty concentrating, hallucinations or suicidal thoughts Endocrine Endocrinology: Denies excessive sweating, polydipsia or polyuria Hematologic/Lymphatic Hematologic/Lymphatic: Denies easy bleeding, easy bruising or lymphadenopathy Allergic/Immunologic Allergic/Immunologic: Denies itchy eyes, lip swelling, seasonal rhinorrhea, rhinitis, throat swelling, tongue swelling, eczemia, wheezing or asthma Vital Signs Vital Signs Vital Signs: 10/20/23 01:54 10/20/23 01:54 10/20/23 01:54 Temperature 99.0 F Temperature Source Temporal Pulse Rate Respiratory Rate 16 Blood Pressure Blood Pressure Mean BP Systolic BP Diastolic Blood Pressure Source Blood Pressure Position Blood Pressure Location Pulse Ox Oxygen Delivery Method 10/20/23 01:57 10/20/23 01:57 10/20/23 01:57 Temperature Temperature Source Pulse Rate 111 H 122 H Respiratory Rate Blood Pressure 125/81 H Blood Pressure Mean BP Systolic 125 BP Diastolic 81 Blood Pressure Source Blood Pressure Position Blood Pressure Location Pulse Ox Oxygen Delivery Method 10/20/23 01:57 10/20/23 02:34 10/20/23 02:34 Temperature Temperature Source Pulse Rate 116 H Respiratory Rate Blood Pressure Blood Pressure Mean BP Systolic BP Diastolic Blood Pressure Source Blood Pressure Position Blood Pressure Location Pulse Ox 98 99 Oxygen Delivery Method 10/20/23 02:39 10/20/23 02:39 10/20/23 02:44 Temperature Temperature Source Pulse Rate 137 H 116 H Respiratory Rate Blood Pressure Blood Pressure Mean BP Systolic BP Diastolic Blood Pressure Source Blood Pressure Position Blood Pressure Location Pulse Ox 98 Oxygen Delivery Method 10/20/23 02:44 10/20/23 02:49 10/20/23 02:49 Temperature Temperature Source Pulse Rate 126 H Respiratory Rate Blood Pressure Blood Pressure Mean BP Systolic BP Diastolic Blood Pressure Source Blood Pressure Position Blood Pressure Location Pulse Ox 100 99 Oxygen Delivery Method 10/20/23 02:54 10/20/23 02:54 10/20/23 02:59 Temperature Temperature Source Pulse Rate 119 H 104 H Respiratory Rate Blood Pressure Blood Pressure Mean BP Systolic BP Diastolic Blood Pressure Source Blood Pressure Position Blood Pressure Location Pulse Ox 99 Oxygen Delivery Method 10/20/23 02:59 10/20/23 03:04 10/20/23 03:04 Temperature Temperature Source Pulse Rate 115 H Respiratory Rate Blood Pressure Blood Pressure Mean BP Systolic BP Diastolic Blood Pressure Source Blood Pressure Position Blood Pressure Location Pulse Ox 99 98 Oxygen Delivery Method 10/20/23 03:09 10/20/23 03:09 10/20/23 03:14 Temperature Temperature Source Pulse Rate 109 H 110 H Respiratory Rate Blood Pressure Blood Pressure Mean BP Systolic BP Diastolic Blood Pressure Source Blood Pressure Position Blood Pressure Location Pulse Ox 98 Oxygen Delivery Method 10/20/23 03:14 10/20/23 03:17 10/20/23 03:17 Temperature Temperature Source Temporal Pulse Rate Respiratory Rate Blood Pressure 107/68 Blood Pressure Mean BP Systolic 107 BP Diastolic 68 Blood Pressure Source Blood Pressure Position Blood Pressure Location Pulse Ox 98 Oxygen Delivery Method 10/20/23 03:17 10/20/23 03:17 10/20/23 03:17 Temperature 99.2 F H Temperature Source Pulse Rate 110 H Respiratory Rate 14 Blood Pressure Blood Pressure Mean BP Systolic BP Diastolic Blood Pressure Source Blood Pressure Position Blood Pressure Location Pulse Ox Oxygen Delivery Method 10/20/23 03:19 10/20/23 03:19 10/20/23 03:24 Temperature Temperature Source Pulse Rate 112 H 110 H Respiratory Rate Blood Pressure Blood Pressure Mean BP Systolic BP Diastolic Blood Pressure Source Blood Pressure Position Blood Pressure Location Pulse Ox 99 Oxygen Delivery Method 10/20/23 03:24 10/20/23 03:29 10/20/23 03:29 Temperature Temperature Source Pulse Rate 110 H Respiratory Rate Blood Pressure Blood Pressure Mean BP Systolic BP Diastolic Blood Pressure Source Blood Pressure Position Blood Pressure Location Pulse Ox 99 99 Oxygen Delivery Method 10/20/23 03:34 10/20/23 03:34 10/20/23 03:39 Temperature Temperature Source Pulse Rate 110 H 116 H Respiratory Rate Blood Pressure Blood Pressure Mean BP Systolic BP Diastolic Blood Pressure Source Blood Pressure Position Blood Pressure Location Pulse Ox 99 Oxygen Delivery Method 10/20/23 03:39 10/20/23 03:44 10/20/23 03:44 Temperature Temperature Source Pulse Rate 108 H Respiratory Rate Blood Pressure Blood Pressure Mean BP Systolic BP Diastolic Blood Pressure Source Blood Pressure Position Blood Pressure Location Pulse Ox 100 99 Oxygen Delivery Method 10/20/23 03:49 10/20/23 03:49 10/20/23 04:07 Temperature Temperature Source Pulse Rate 111 H 103 H Respiratory Rate Blood Pressure Blood Pressure Mean BP Systolic BP Diastolic Blood Pressure Source Blood Pressure Position Blood Pressure Location Pulse Ox 98 Oxygen Delivery Method 10/20/23 04:07 10/20/23 04:12 10/20/23 04:12 Temperature Temperature Source Pulse Rate 109 H Respiratory Rate Blood Pressure Blood Pressure Mean BP Systolic BP Diastolic Blood Pressure Source Blood Pressure Position Blood Pressure Location Pulse Ox 99 98 Oxygen Delivery Method 10/20/23 04:17 10/20/23 04:17 10/20/23 04:22 Temperature Temperature Source Pulse Rate 121 H 120 H Respiratory Rate Blood Pressure Blood Pressure Mean BP Systolic BP Diastolic Blood Pressure Source Blood Pressure Position Blood Pressure Location Pulse Ox 98 Oxygen Delivery Method 10/20/23 04:22 10/20/23 04:27 10/20/23 04:27 Temperature Temperature Source Pulse Rate 111 H Respiratory Rate Blood Pressure Blood Pressure Mean BP Systolic BP Diastolic Blood Pressure Source Blood Pressure Position Blood Pressure Location Pulse Ox 98 99 Oxygen Delivery Method 10/20/23 04:32 10/20/23 04:32 10/20/23 04:37 Temperature Temperature Source Pulse Rate 106 H 103 H Respiratory Rate Blood Pressure Blood Pressure Mean BP Systolic BP Diastolic Blood Pressure Source Blood Pressure Position Blood Pressure Location Pulse Ox 98 Oxygen Delivery Method 10/20/23 04:37 10/20/23 04:42 10/20/23 04:42 Temperature Temperature Source Pulse Rate 103 H Respiratory Rate Blood Pressure Blood Pressure Mean BP Systolic BP Diastolic Blood Pressure Source Blood Pressure Position Blood Pressure Location Pulse Ox 98 97 Oxygen Delivery Method 10/20/23 04:47 10/20/23 04:47 10/20/23 04:52 Temperature Temperature Source Pulse Rate 104 H 108 H Respiratory Rate Blood Pressure Blood Pressure Mean BP Systolic BP Diastolic Blood Pressure Source Blood Pressure Position Blood Pressure Location Pulse Ox 99 Oxygen Delivery Method 10/20/23 04:52 10/20/23 04:57 10/20/23 04:57 Temperature Temperature Source Pulse Rate 99 Respiratory Rate Blood Pressure Blood Pressure Mean BP Systolic BP Diastolic Blood Pressure Source Blood Pressure Position Blood Pressure Location Pulse Ox 97 98 Oxygen Delivery Method 10/20/23 05:02 10/20/23 05:02 10/20/23 05:07 Temperature Temperature Source Pulse Rate 108 H 112 H Respiratory Rate Blood Pressure Blood Pressure Mean BP Systolic BP Diastolic Blood Pressure Source Blood Pressure Position Blood Pressure Location Pulse Ox 98 Oxygen Delivery Method 10/20/23 05:07 10/20/23 05:12 10/20/23 05:12 Temperature Temperature Source Pulse Rate 109 H Respiratory Rate Blood Pressure Blood Pressure Mean BP Systolic BP Diastolic Blood Pressure Source Blood Pressure Position Blood Pressure Location Pulse Ox 97 98 Oxygen Delivery Method 10/20/23 05:23 10/20/23 05:23 10/20/23 05:28 Temperature Temperature Source Pulse Rate 103 H 99 Respiratory Rate Blood Pressure Blood Pressure Mean BP Systolic BP Diastolic Blood Pressure Source Blood Pressure Position Blood Pressure Location Pulse Ox 98 Oxygen Delivery Method 10/20/23 05:28 10/20/23 05:33 10/20/23 05:33 Temperature Temperature Source Pulse Rate 105 H Respiratory Rate Blood Pressure Blood Pressure Mean BP Systolic BP Diastolic Blood Pressure Source Blood Pressure Position Blood Pressure Location Pulse Ox 98 97 Oxygen Delivery Method 10/20/23 05:38 10/20/23 05:38 10/20/23 05:43 Temperature Temperature Source Pulse Rate 104 H 102 H Respiratory Rate Blood Pressure Blood Pressure Mean BP Systolic BP Diastolic Blood Pressure Source Blood Pressure Position Blood Pressure Location Pulse Ox 97 Oxygen Delivery Method 10/20/23 05:43 10/20/23 05:48 10/20/23 05:48 Temperature Temperature Source Pulse Rate 104 H Respiratory Rate Blood Pressure Blood Pressure Mean BP Systolic BP Diastolic Blood Pressure Source Blood Pressure Position Blood Pressure Location Pulse Ox 96 97 Oxygen Delivery Method 10/20/23 05:53 10/20/23 05:53 10/20/23 05:58 Temperature Temperature Source Pulse Rate 107 H 100 Respiratory Rate Blood Pressure Blood Pressure Mean BP Systolic BP Diastolic Blood Pressure Source Blood Pressure Position Blood Pressure Location Pulse Ox 98 Oxygen Delivery Method 10/20/23 05:58 10/20/23 06:02 10/20/23 06:02 Temperature Temperature Source Temporal Pulse Rate Respiratory Rate 16 Blood Pressure Blood Pressure Mean BP Systolic BP Diastolic Blood Pressure Source Blood Pressure Position Blood Pressure Location Pulse Ox 96 Oxygen Delivery Method 10/20/23 06:02 10/20/23 06:02 10/20/23 06:03 Temperature 97.6 F L Temperature Source Pulse Rate Respiratory Rate Blood Pressure 115/73 Blood Pressure Mean BP Systolic 115 BP Diastolic 73 Blood Pressure Source Blood Pressure Position Blood Pressure Location Pulse Ox 98 Oxygen Delivery Method 10/20/23 06:03 10/20/23 06:04 10/20/23 06:04 Temperature Temperature Source Pulse Rate 108 H 116 H Respiratory Rate Blood Pressure Blood Pressure Mean BP Systolic BP Diastolic Blood Pressure Source Blood Pressure Position Blood Pressure Location Pulse Ox 99 Oxygen Delivery Method 10/20/23 06:09 10/20/23 06:09 10/20/23 06:09 Temperature 97.6 F L Temperature Source Temporal Pulse Rate 120 H 108 H Respiratory Rate 16 Blood Pressure 115/73 Blood Pressure Mean 87 BP Systolic BP Diastolic Blood Pressure Source Monitor Blood Pressure Position Semi-Fowlers Blood Pressure Location Left Arm Pulse Ox 99 99 Oxygen Delivery Method Room Air 10/20/23 06:14 10/20/23 06:14 Temperature Temperature Source Pulse Rate 126 H Respiratory Rate Blood Pressure Blood Pressure Mean BP Systolic BP Diastolic Blood Pressure Source Blood Pressure Position Blood Pressure Location Pulse Ox 99 Oxygen Delivery Method Weight Weight: 120 lb 13.013 oz Body Mass Index (BMI) 23.6 Physical Exam Const alert, oriented x3, no apparent distress and healthy appearing General Appearance: cooperative; Negative for anxious HEENT normocephalic Face and Sinus: normal facial exam Eyes EOMs intact bilaterally and no scleral icterus General Eye: normal appearance of both eyes Neck full ROM and supple Lymph Lymphatic: no lymphadenopathy noted Chest Chest: abnormal inspection of the chest Resp normal respiratory effort Effort and Inspection: able to speak in complete sentences Cardio regular rate GI soft to palpation and non-tender Inspection: gravid Palpation: soft; Negative for tender Back/Spine no CVA tenderness Extremity normal to inspection, full ROM and no clubbing, cyanosis or edema General Extremity: Negative for calf tenderness or edema Skin Lesions: no lesions Rashes: no rashes Psych mental status grossly normal Labs Labs Labs: Blood Type O POSITIVE Antibody Screen NEGATIVE Hct 34.1 % (37-47) L Hgb 11.0 g/dL (12.0-15.0) L Syphilis Total Ab Non-reactive Rubella IgG Antibody Reactive (Nonreactive) Hep Bs Antigen Non-Reactive (Nonreactive) Hepatitis C Antibody Non-Reactive (Nonreactive) Chlamydia DNA (CORRIE) Negative (Negative) N.gonorrhoeae DNA (CORRIE) Negative (Negative) HIV 1&2 Antibody Non-Reactive (Nonreactive) Glucose 1 Hr 50 gm 86 mg/dL (70-140) Miscellaneous Test Assessment & Plan (1) Decreased movement: (2) Threatened labor: (3) Anemia: QUALIFIERS: Anemia type: unspecified type Qualified Code(s): D64.9 - Anemia, unspecified COMMENT: CBC & Fe studies in 4 weeks; IV venofer-did not respond. (4) Family history of Bonilla syndrome: COMMENT: previous child. low nipt this . (5) Former smoker: COMMENT: Quit 2014 (6) Uterine abnormality in : QUALIFIERS: Trimester: third trimester Qualified Code(s): O34.593 - Maternal care for other abnormalities of gravid uterus, third trimester COMMENT: 24mm thin GENNARO seen on US this . previous uterine window noted, plan 30 and 36 week US. s/p mfm consult- delivery at 37 weeks recommended. steroids at 35 weeks, RLTCS scheduled for 10/31 @ 7:15 with JV -rpt ultrasound showed GENNARO at 29 weeks to be 16mm. has plan to repeat this at 36 weeks but may be delivered before this. -on l&D for pain after sex on 09/09 and stable. (7) Previous section: COMMENT: x 2. First related to decels 10/31- 7am- JV with BTL. title 19 08/17/23 (8) Anxiety and depression: COMMENT: stable (9) ADHD (attention deficit hyperactivity disorder): COMMENT: on adderall. (10) Supervision of high-risk : QUALIFIERS: Trimester: third trimester Qualified Code(s): O09.93 - Supervision of high risk , unspecified, third trimester COMMENT: , ERICA 11/22/23, Katnia Winters Significant other Andrea (11) : QUALIFIERS: Weeks of gestation: 34 weeks Qualified Code(s): Z3A.34 - 34 weeks gestation of COMMENT: NIPT low risk, carrier testing neg. 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 I have discussed with the patient the risks, benefits, and alternatives of the procedure which include but are not limited to risks of anesthesia, bleeding, infection, possible damage to bowel, bladder, or surrounding vasculature which could lead to additional surgery to evaluate any complications. Patient agrees to procedure and wishes to proceed.
--- NOTE | 2023-10-20 08:07 | OP.PCM_ITS ---
Maternal Data Information ERICA Calculator Estimated Delivery Date Method Current WG Current Estimate 11/22/23 LMP (Certain) 35w 2d Other Estimates 11/24/23 Ultrasound #1 35w 0d Details Operative Information Date of Procedure: 10/20/23 Pre-Operative Diagnosis: 33y/o @ 35 weeks 2 days, contractions, and late heart rate decelerations Post-Operative Diagnosis: 33y/o @ 35 weeks 2 days, contractions, and late heart rate decelerations Indications for : Repeat Elective and Desires elective sterilization Classification: [place] Procedure Type: low transverse cotton weigher #1: Lucio Drake Type of Anesthesia: Spinal Anesthesiologist: [place] Emmanuel Antibiotic Given: Ancef 2 grams IV x1 Drain: March to straight drain Estimated Blood Loss: 500 Procedure Start Time: 06:47 Procedure Stop Time: 07:19 Time of Delivery: 06:52 Findings Description of Procedure: Procedure: The patient was brought to the operating room and spinal anesthesia was adminis tered and found to be adequate. She was prepped and draped in the normal sterile fashion and was placed in a dorsal supine position with a leftward tilt. Pfannenstiel skin incision was made with a scalpel and carried through to the underlying layers. The fascia was nicked in the midline and extended laterally using Hernandez scissors. The anterior aspect of the fascia was grasped with Casey clamps and the underlying rectus muscles dissected off using the Metzenbaum scissors. The inferior aspect the fascia was also grasped with Casey clamps and the underlying rectus muscle dissected off with the Metzenbaum scissors. The rectus muscles were in the midline. Peritoneum was entered sharply. The uterus was identified and a bladder blade was inserted into the abdomen. Bladder flap was created off the uterus using Metzenbaum scissors. A transverse incision was made with a scalpel and extended laterally manually. The infant's head was grasped with the help of my recruitment and outreach assistant and fundal pressure the infant was delivered through the uterine incision without difficulty. The mouth and nares were bulb suctioned. After a 30 second delay the cord was clamped and cut. The was handed off to the awaiting call center consultant for routine assessment. Placenta was delivered manually without difficulty. The uterus was exteriorized and cleared of all clots and debris. Incision was closed with an 0 Vicryl suture in a running locked fashion. Second layer of 1-0 monocryl suture was used in imbricating manner to create excellent closure and hemostasis. The right tube was grasped with a Pindall clamp and the underlying mesosalpinx was cauterized and cut with the ligasure device removing the entire tube and fimbriated end. The same procedure was performed on the opposite side. Both fallopian tubes were passed off for pathology analysis. The uterus was returned to the abdomen. The gutters were cleared of all clots and debris. The peritoneum was closed in a pursestring pattern using a 3-0 Vicryl suture. This muscle was reapproximated with a 3-0 Vicryl. The fascia was closed with an 0 Vicryl suture. Subcutaneous tissue layer was closed using a plain gut suture. The skin was closed with a 4-0 Monocryl subcuticular stitch. The skin was also sealed with surgical glue. The patient tolerated the procedure well sponge lap and needle counts were correct at each tissue closure plane and the patient is now being brought to the recovery room in stable condition Presentation: Positive for Vertex Amniotic Membrane Rupture Type: Spontaneous Amniotic Fluid Description: Clear Placental Delivery Description: Expressed Placenta Disposition: [facility] Cord Vessel Description: 3 Vessels Cord Entanglement: None Cord Gases: ABG and VBG Infant A Gender: Male (1 minute): 8 (5 minute): 9 Delayed Cord Clamping: Yes Complications Risks of Surgery Discussed w/Patient: Bleeding, Anesthesia Risks, Infection, Need for Future C-Sections, Permanency, Failure Rate of 1 to 2%, Injury to surrounding structure(s) including bowel and bladder and Availability of other non-permanent control options Complications: none Multi Select Codes Urinary/Genital Urinary/Genital CPT Codes: 73452 delivery+PP Care(AYAH) and Other Procedure See Report
--- NOTE | 2023-10-20 08:21 | DCINST_ITS ---
Discharge Instructions Diet Discharge Diet: No restrictions Activity Discharge Activity: May Not Drive (for 2 weeks or while taking narcotic pain medications.), May Shower and May Take a Tub Bath (in 7 days.) May resume sexual activity in: 4-6 weeks Weight Bearing Status: Full weight bearing Lifting Restrictions: 20 pounds Dressing / Incision Call your doctor if your incision/area has: Continuous Slow Oozing, Sudden Increased Bleeding, Increased Pain/ Swelling, Increased Redness and Foul Smelling Discharge Call your doctor if you observe: Fever of 101 or Higher and Using more than 1 pad per hour Suture Line Care: Avoid Pulling/Pushing and Avoid Pinching/Bending Cleanse incision/area with: Soap & Water and Keep Dressing Clean & Dry Follow Up Care Please Follow Up With: Guerline Dickens DO When: Call [phone] to make an appointment for an incision check in 1-2 weeks. Test Results: Test results from this visit will be discussed in further detail at your follow- up appointment, if applicable. Discharge Plan Admission Admit Date/Time: 10/20/23 06:08 Attending Provider: Guerline Dickens Primary Care Provider: Lilia Fletcher Discharge Orders/Prescriptions Prescriptions: New ibuprofen 800 mg tablet 800 mg PO Q8H PRN (Reason: pain) Qty: 30 0RF oxycodone-acetaminophen [Percocet] 5-325 mg tablet 1 tab PO Q4H PRN (Reason: pain) 7 Days Qty: 20 0RF Rx Instructions: 1-2 tabs q 4 hrs as needed for pain No Action PNV no.[id number] 180 mcg-35 mg- 25 mg-5 mg tablet,chewable 1 tab PO DAILY dextroamphetamine-amphetamine [Adderall XR] 20 mg capsule,extended release 24hr 20 mg PO DAILY 30 Days Qty: 30 0RF Referrals / Follow Up: Lilia Fletcher DO [Primary Care Provider] - Disposition Disposition (needs filled in before D/C Order can be placed): Home, Self Care
[2023-10-20] MEDS: Acetaminophen 500 MG Tablet 1000 MG PO ×3 (08:23→21:38)
[2023-10-20 09:16] LABS: Syphilis Antibodies Non-reactive
[2023-10-20] MEDS: Ketorolac 30 MG/ML Syringe IV ×3 (09:20→23:22)
[2023-10-20] MEDS: 0.9% Saline Lock 10 ML Syringe IV ×2 (17:18→23:22)
[2023-10-20] MEDS: Zolpidem Tartrate 5 MG Tablet PO (19:06)
[2023-10-21] MEDS: Acetaminophen 500 MG Tablet 1000 MG PO ×2 (03:41→08:37)
[2023-10-21 03:43] VITALS: BP 99/68; PULSE 102; RESP 16; O2SAT 99
[2023-10-21] MEDS: Ketorolac 30 MG/ML Syringe IV (05:27)
[2023-10-21] MEDS: 0.9% Saline Lock 10 ML Syringe IV (05:27)
[2023-10-21 05:42] LABS: Hematocrit 27.1 % (37-47); Hemoglobin 8.6 g/dL (12.0-15.0); Mean Corp Hgb Conc 31.7 g/dL (32-36); Mean Corpuscular Hgb 28.5 pg (27.0-32.0); Mean Corpuscular Volume 89.7 fL (81-99); Mean Platelet Vol. 10.2 fl (6.2-12.0); POSITIVE MORPHOLOGY YES; Platelet Count 261 K/mm3 (150-450); RBC Distribution Width CV 20.1 % (11.6-14.6); RBC Distribution Width SD 65.1 fl (35.1-43.9); Red Blood Count 3.02 M/mm3 (4.2-5.4); White Blood Count 14.6 K/mm3 (4.4-11.0)
[2023-10-21 06:12] LABS: Scan Indicated on CBC? Y/N YES- FLAGS NOTED
[2023-10-21] MEDS: oxyCODONE 5 MG Tablet PO (07:18)
[2023-10-21 08:26] VITALS: BP 114/87; PULSE 87; RESP 16; TEMP 36.4
--- NOTE | 2023-10-21 08:33 | PCM.PN.OB ---
Subjective Subjective Patient doing well without complaints. Tolerating PO. Ambulating and voiding without difficulty. pumping well. Denies chest pain, shortness of breath, calf pain/swelling, fevers, chills, lightheadedness. Objective Data Objective Data Vital Signs: Vital Signs Temp Pulse Resp BP Pulse Ox O2 Del Method 97.6 F L 87 16 114/87 H 99 Room Air 10/21/23 08:26 10/21/23 08:26 10/21/23 08:26 10/21/23 08:26 10/21/23 03:43 10/21/23 03:43 Oxygen Delivery Method Room Air Weight: 120 lb 13.013 oz Body Mass Index (BMI) 23.6 Intake & Output: Intake and Output for Last 24 Hours 10/19/23 10/20/23 10/21/23 23:59 23:59 23:59 Intake Total 2096.67 / 2096.67 Output Total 1400 / 1400 Balance 696.67 / 696.67 Lab / Micro Data 10/21/23 05:34 Labs: Laboratory Results - last 24 hr 10/20/23 02:40: Syphilis Total Ab Non-reactive 10/21/23 05:34: WBC 14.6 H, RBC 3.02 L, Hgb 8.6 L, Hct 27.1 L, MCV 89.7, MCH 28.5, MCHC 31.7 L, RDW Std Deviation 65.1 H, RDW Coeff of Bernard 20.1 H, Plt Count 261, MPV 10.2, Differential Comment COMMENT Physical Exam Const alert and oriented x3 Lymph Lymphatic: no lymphadenopathy noted Chest inspection of chest normal Resp normal respiratory effort and normal air movement Effort and Inspection: able to speak in complete sentences Auscultation: clear to auscultation bilaterally Cardio regular rate and regular rhythm GI normal to inspection, nondistended, normoactive bowel sounds Uterus Palpation: uterus fundus firm Skin no rashes or lesions noted Skin Narrative: dressing c/d/i Neuro oriented x3 Psych mental status grossly normal Assessment & Plan (1) delivery delivered: COMMENT: ISAÍAS 35.2 rpt c/s for ctx PLAN: s/p LTCS PPD # 1 1. routine post care 2. breast feeding- support given 3. rh positive 4. rubella immune 5. d/c home today
[2023-10-21] MEDS: Ibuprofen 600 MG Tablet PO (08:36)
[2023-10-21] MEDS: Senna/Docusate Sodium 1 Tablet PO (08:38)
== END 2023-10-21 09:30 | disposition home or self-care (01) | DRG 540 ==
LOC: WPOUT 06:22 → WP 06:22
PROVIDERS: Obstetrics & Gynecology; Admitting Provider Obstetrics & Gynecology; PCP Internal Medicine; Referring Provider Obstetrics & Gynecology; Visit Provider Obstetrics & Gynecology
DX: O76 Abnormality in fetal heart rate and rhythm complicating labor and delivery (principal); F32.A Depression, unspecified; F41.9 Anxiety disorder, unspecified; Z87.891 Personal history of nicotine dependence; O36.8130 Decreased fetal movements, third trimester, not applicable or unspecified; O34.593 Maternal care for other abnormalities of gravid uterus, third trimester; O99.02 Anemia complicating childbirth; F90.9 Attention-deficit hyperactivity disorder, unspecified type; O99.344 Other mental disorders complicating childbirth; Z37.0 Single live birth; Z82.79 Family history of other congenital malformations, deformations and chromosomal abnormalities; Z3A.35 35 weeks gestation of pregnancy
CPT/HCPCS: 59050; 80307; 85025; 85027; 86780; 86850; 86900; 86901; 88302; 99221; A4216; G0378; J0702

== ENCOUNTER → 2024-01-03 | Outpatient (CLI) | payer MEDICAID, SELFPAY ==
[2024-01-09 09:07] LABS: HPV APTIMA, High Risk Negative (Negative)
== END | disposition home or self-care (01) ==
LOC: LABSPEC 14:08
PROVIDERS: PCP Internal Medicine; Referring Provider Obstetrics & Gynecology; Visit Provider Obstetrics & Gynecology
DX: Z12.4 Encounter for screening for malignant neoplasm of cervix (principal)
CPT/HCPCS: 87624; 88175; G0145